=== PATIENT | male | born 1960 | race Caucasian/White ===

== ENCOUNTER → 2017-02-13 | Day surgery (SDC) | payer OTHER ==
[~2017-02-13] VITALS: Ht 175.3 cm; Wt 104.8 kg
[~2017-02-13] MED LIST: ASPIR 8181 MG PO; BRILINTA90 MG PO; CELEXA20 MG PO; FUROSEMIDE 40 M40 M1 PO; KEFLEX500 MG PO; LOPRESSOR50 PO; NORCO 10-325 T1 EACH PO; NORVASC2.5 MG PO; PRAVACHOL40 MG PO; PROAIR HFA8.5 GM INH; PROTONIX40 M1 PO; RANEXA500 MG PO; REQUIP 1 MG TABL1 M1 PO; ROBAXIN500 MG PO; VALIUM5 MG PO; VITAMIN D 5050000 I1 PO; ZETIA10 MG PO; ZYRTEC10 M5 PO
--- NOTE | ~2017-02-13 | H ---
[facility] [place] [address] HISTORY AND PHYSICAL Name: ZINA SALGUERO Room #: 150-2 [facility] M.R.#: [id number] Admission: 02/13/17 Attend Phys: Carlos López MD Discharge: Date of : 60 Report #: [id number] THIS REPORT FOR: //name// CC: Davian López DATE OF SERVICE: 02/13/2017 HISTORY OF PRESENT ILLNESS: The patient has difficulty breathing through his nose. He feels stuffed up on the left side more prominently with sneezing, postnasal drainage and fullness in his head. He snores very loudly. He is not sure about obstructive sleep apnea. He had a CT scan of his sinuses which shows a deviated nasal septum anteriorly to the right and along the inferior meatus on the left. There were no sinusitis and he did not have a lot of swelling in the nose or sinuses. PAST MEDICAL HISTORY: Significant for heart problems and high blood pressure. MEDICATIONS: Pantoprazole, pravastatin, aspirin, metoprolol. ALLERGIES: He is allergic to STATINS. PHYSICAL EXAMINATION: He has a deviated nasal septum to the right side anteriorly with the septum actually touching the lateral wall of the nose. There was a large spur along the floor in the inferior meatus on the left side. His oropharynx and oral cavity were clear. IMPRESSION: Deviated nasal septum with nasal airway obstruction. PLAN: Nasal septoplasty. <ELECTRONICALLY SIGNED> By: Carlos López MD 02/13/17 0739 [id number] Carlos López MD /nt
--- NOTE | ~2017-02-13 | O ---
[facility] [place] [address] OPERATIVE REPORT Name: ZINA SALGUERO Room #: 150-2 [facility] M.R.#: [id number] Admission: 02/13/17 Attend Phys: Carlos López MD Discharge: Date of : 60 Report #: [id number] THIS REPORT FOR: //name// CC: Davian López DATE OF SERVICE: 02/13/2017 PREOPERATIVE DIAGNOSES: Deviated nasal septum with nasal airway obstruction. POSTOPERATIVE DIAGNOSES: Deviated nasal septum with nasal airway obstruction. OPERATIVE PROCEDURE: Nasal septoplasty. ANESTHESIA: General by laryngeal mask. PROCEDURE: The patient was taken to the operating room and placed in supine position. General anesthesia was induced by laryngeal mask. Once adequate general anesthesia was obtained, local nasal anesthesia was induced by submucoperichondrial injection of 1% lidocaine with 1:100,000 epinephrine and topical application of cocaine solution. The patient was then draped in a sterile manner. The patient had a nasal septal deviation anteriorly to the right with a large septal spur along the floor back towards the middle meatus on the left. A hemitransfixion incision was placed on the left side of the nose and the mucoperichondrium and mucoperiosteum was elevated off the septum. The cartilage was incised in front of the bony cartilaginous junction and a portion of cartilage and bone was removed from the mid portion of the septum. The septal spur consisted of hypertrophic cartilage and a fracture of the maxillary crest. The cartilage was removed as a long strip, the maxillary crest was infractured and rongeured. After these maneuvers, the septum sat more in the midline. The hemitransfixion incision was then closed with 4-0 chromic suture and a 4-0 plain mattress suture was placed as well. The patient tolerated the procedure well. Blood loss approximately 50 mL. The patient was then awoken and taken to the recovery room in stable condition for postoperative monitoring. <ELECTRONICALLY SIGNED> By: Carlos López MD 02/13/17 0938 [id number] Carlos López MD /nt
[2017-02-13 07:08] LABS: CALCIUM 8.3 mg/dL (8.5-10.1); CREATININE 1.4 mg/dL (0.7-1.3); POTASSIUM 3.9 mmol/L (3.5-5.1)
[2017-02-13 07:30] VITALS: BP 107/67
[2017-02-13 08:40] VITALS: BP 107/67
== END | disposition home or self-care (01) ==
LOC: OR 05:27 → TBA 05:27 → OR 10:14
PROVIDERS: Otolaryngology
DX: J34.2 Deviated nasal septum (principal); J34.89 Other specified disorders of nose and nasal sinuses; I10 Essential (primary) hypertension; J44.9 Chronic obstructive pulmonary disease, unspecified; F32.9 Major depressive disorder, single episode, unspecified; G47.33 Obstructive sleep apnea (adult) (pediatric); F17.210 Nicotine dependence, cigarettes, uncomplicated; I25.2 Old myocardial infarction; Z95.1 Presence of aortocoronary bypass graft; Z98.890 Other specified postprocedural states
CPT/HCPCS: 50010; 50101; 70005